=== PATIENT | male | born 1950 | race Caucasian/White ===

== ENCOUNTER 2024-10-19 07:11 | Emergency (ER) | payer MEDICARE | END 2024-10-19 11:49 | disposition home or self-care (01) | LOC: CSHERS 07:11 | DX: T81.31XA Disruption of external operation (surgical) wound, not elsewhere classified, initial encounter (principal); T82.837A Hemorrhage due to cardiac prosthetic devices, implants and grafts, initial encounter; I10 Essential (primary) hypertension | CPT/HCPCS: 71045; 93005 ==